=== PATIENT | female | born 1980 | race Two or more races ===

== ENCOUNTER → 2023-11-17 | Outpatient (CLI) | payer BC, OTHER ==
--- NOTE | 2023-11-17 13:14 | US ---
EXAMINATION TYPE: US pelvis complete transvag DATE OF EXAM: 11/17/2023 COMPARISON: NONE CLINICAL INDICATION: Female, 43 years old with history of R10.2 PELVIC AND PERINEAL PAIN; Patient sta wanda having a history of right cyst removal. TECHNIQUE: Transvaginal (TV) and Transabdominal (TA) . Transabdominal sonographic images of the pel vis were acquired. Transvaginal sonographic images were medically necessary to better assess the fol lowing anatomy: Ovaries, endometrium Date of LMP: 11/14/2023, EXAM MEASUREMENTS: Uterus: 7.4 x 4.3 x 4.3 cm Endometrial Stripe: 0.4 cm Right Ovary: 3.0 x 1.6 x 1.9 cm Left Ovary: 2.4 x 1.5 x 1.3 cm 1. Uterus: Retroverted Hypoechoic lesions seen, with right = 2.3 x 2.1 x 2.2 cm and left = 1.0 x 1.0 x 0.8 cm 2. Endometrium: wnl 3. Right Ovary: follicles seen 4. Left Ovary: Follice seen 5. Bilateral Adnexa: free fluid seen adjacent to left ovary extending into posterior cul de sac 6. Posterior cul-de-sac: free fluid IMPRESSION: 1. probable leiomyomatous change of the uterus.
== END | disposition home or self-care (01) ==
LOC: RADUSWWP 12:05
PROVIDERS: ATTEND Obstetrics & Gynecology
DX: R10.2 Pelvic and perineal pain (principal)
CPT/HCPCS: 76830; 76856

== ENCOUNTER 2024-03-22 18:33 | Emergency (ER) | payer BC, OTHER ==
--- NOTE | 2024-03-22 18:51 | ED ---
Nausea/Vomiting/Diarrhea HPI - General Source: patient, RN notes reviewed Mode of arrival: ambulatory Limitations: no limitations <Daya Hughes - Last Filed: 03/22/24 18:49> - History of Present Illness MD complaint: nausea, abdominal pain Onset/Timin -: days(s) Description of Vomiting: food contents Associated Abdominal Pain: Yes Location: diffuse Severity: moderate Quality: cramping Consistency: intermittent Improves with: none Worsens with: none Associated Symptoms: nausea/vomiting <Jacinto Price - Last Filed: 04/03/24 11:13> - General Chief complaint: Nausea/Vomiting/Diarrhea Stated complaint: Vomiting, Time Seen by Provider: 03/22/24 18:50 - History of Present Illness Initial comments: Quick note: 44-year-old female presenting to the ER with a chief complaint of myalgias and vomiting. She states has been going on since 03/20/24. She also is describing shortness of breath. Denies any cough, congestion, or chest pain. (Daya Hughes) - Related Data Previous Rx's Medication Instructions Recorded Famotidine [Pepcid] 20 mg PO BID #14 tablet 03/23/24 Ondansetron Odt [Zofran ODT] 4 mg PO Q8HR PRN #10 tab 03/23/24 Allergies Allergy/AdvReac Type Severity Reaction Status Date / Time No Known Allergies Allergy Verified 03/22/24 18:40 Review of Systems ROS Other: All systems not noted in ROS Statement are negative. <Daya Hughes - Last Filed: 03/22/24 18:49> ROS Other: All systems not noted in ROS Statement are negative. Constitutional: Denies: fever Respiratory: Denies: cough, dyspnea Cardiovascular: Denies: chest pain, palpitations, edema, syncope Gastrointestinal: Reports: abdominal pain, nausea, vomiting. Denies: hematemesis, melena, hematochezia Genitourinary: Denies: dysuria, hematuria Skin: Denies: rash Neurological: Denies: headache, numbness <Jacinto Price - Last Filed: 04/03/24 11:13> ROS Statement: Those systems with pertinent positive or pertinent negative responses have been documented in the HPI. Past Medical History Past Medical History: No Reported History Past Surgical History: Cholecystectomy Additional Past Surgical History / Comment(s): ovarian <Daya Hughes - Last Filed: 03/22/24 18:49> General Exam Limitations: no limitations <Daya Hughes - Last Filed: 03/22/24 18:49> Limitations: no limitations General appearance: alert, in no apparent distress Head exam: Present: atraumatic, normocephalic Eye exam: Present: normal appearance. Absent: scleral icterus, conjunctival injection Neck exam: Present: normal inspection Respiratory exam: Present: normal lung sounds bilaterally. Absent: respiratory distress, wheezes, rales, rhonchi, stridor, accessory muscle use Cardiovascular Exam: Present: regular rate, normal rhythm, normal heart sounds. Absent: systolic murmur, diastolic murmur, rubs, gallop GI/Abdominal exam: Present: soft, tenderness. Absent: distended, guarding, rebound, rigid, mass, pulsatile mass, hernia Extremities exam: Present: normal inspection, normal capillary refill. Absent: pedal edema, calf tenderness Back exam: Present: normal inspection. Absent: CVA tenderness (R), CVA tenderness (L) Neurological exam: Present: alert Skin exam: Present: warm, dry, intact, normal color. Absent: rash <Jacinto Price - Last Filed: 04/03/24 11:13> - General Exam Comments Initial Comments: Visual Physical Exam Vital signs reviewed General: Well-appearing, nontoxic, no acute distress. Head: Normocephalic, atraumatic Eyes: PERRLA, EOMI ENT: Airway patent Chest: Nonlabored breathing Skin: No visual rash, normal skin tone Neuro: Alert and oriented 3 Musculoskeletal: No gross abnormalities (Daya Hughes) Course Vital Signs 03/22/24 03/23/24 03/23/24 18:37 01:38 04:40 Temperature 98 F 97.8 F Pulse Rate 89 65 67 Respiratory 36 H 18 Rate Blood Pressure 127/91 109/52 118/65 O2 Sat by Pulse 99 100 100 Oximetry Medical Decision Making <Daya Hughes - Last Filed: 03/22/24 18:49> - Lab Data Result diagrams: 03/22/24 18:55 03/22/24 18:55 <Jacinto Price - Last Filed: 04/03/24 11:13> - Medical Decision Making I performed the quick note portion of this chart. Electronically signed by Daya Hughes PA-C (Daya Hughes) The patient had CT scan of the abdomen which I interpreted as negative for acute surgical condition, no free air, no obstruction Was pt. sent in by a medical professional or institution (BETTY Seth, SEPARATOR OPERATOR [employer], urgent care, hospital, or fpc...) When possible be specific @ -[No] Did you speak to anyone other than the patient for history (EMS, parent, family, police, friend...)? What history was obtained from this source @ -[No] Did you review nursing and triage notes (agree or disagree)? Why? @ -[I reviewed and agree with nursing and triage notes] Were old charts reviewed (outside hosp., previous admission, EMS record, old EKG, old radiological studies, urgent care reports/EKG's, fpc records)? Report findings @ -[No old charts were reviewed] Differential Diagnosis (chest pain, altered mental status, abdominal pain women, abdominal pain men, vaginal bleeding, weakness, fever, dyspnea, syncope, headache, dizziness, GI bleed, back pain, seizure, CVA, palpatations, mental health, musculoskeletal)? @ -[Differential Abdominal Pain Women: Appendicitis, Cholecystitis, diverticulosis, ischemic bowel, pancreatitis, hepatitis, UTI, gastroenteritis, AAA, incarcerated hernia, bowel obstruction, constipation, inflammatory bowel, hepatitis, peptic ulcer disease, splenic infarction, perforated viscus, vulvitis, ovarian torsion, PID, kidney stone, placenta abruption, this is not meant to be an all-inclusive list EKG interpreted by me (3pts min.). @ -[As above] X-rays interpreted by me (1pt min.). @ -[None done] CT interpreted by me (1pt min.). @ -[I interpreted as above U/S interpreted by me (1pt. min.). @ -[None done] What testing was considered but not performed or refused? (CT, X-rays, U/S, labs)? Why? @ -[None] What meds were considered but not given or refused? Why? @ -[None] Did you discuss the management of the patient with other professionals (professionals i.e. BETTY Seth, SEPARATOR [employer], lab, RT, psych nurse, healthcare social worker, carton stamper, teacher, articulation officer, nurse outreach case manager)? Give summary @ -[No] Was smoking cessation discussed for >3mins.? @ -[No] Was critical care preformed (if so, how long)? @ -[No] Were there social determinants of health that impacted care today? How? (Homelessness, low income, unemployed, alcoholism, drug addiction, transportation, low edu. Level, literacy, decrease access to med. care, skilled nursing, rehab)? @ -[No] Was there de-escalation of care discussed even if they declined (Discuss DNR or withdrawal of care, Hospice)? DNR status @ -[No] What co-morbidities impacted this encounter? (DM, HTN, Smoking, COPD, CAD, Cancer, CVA, ARF, Chemo, Hep., AIDS, mental health diagnosis, sleep apnea, morbid obesity)? @ -[None] Was patient admitted / discharged? Hospital course, mention meds given and route, prescriptions, significant lab abnormalities, going to OR and other pertinent info. @ -[Patient is 44-year-old woman here to have evaluation of abdominal pain. There is tenderness on the exam and patient therefore is sent for CT scan. The CT scan does not reveal definite etiology. I discussed with the patient appropriate further care and follow-up as well as return parameters. Undiagnosed new problem with uncertain prognosis? @ -[No] Drug Therapy requiring intensive monitoring for toxicity (Heparin, Nitro, Insulin, Cardizem)? @ -[No] Were any procedures done? @ -[No] Diagnosis/symptom? @ -[Acute abdominal pain Acute, or Chronic, or Acute on Chronic? @ -[Acute Uncomplicated (without systemic symptoms) or Complicated (systemic symptoms)? @ -[Uncomplicated Side effects of treatment? @ -[No] Exacerbation, Progression, or Severe Exacerbation? @ -[No] Poses a threat to life or bodily function? How? (Chest pain, USA, PR, pneumonia, PE, COPD, DKA, ARF, appy, cholecystitis, CVA, Diverticulitis, Homicidal, Suicidal, threat to staff... and all critical care pts) @ -[No] (Jacinto Price) - Lab Data Lab Results 03/22/24 03/22/24 03/22/24 Range/Units 18:55 18:55 18:55 WBC 7.2 (3.8-10.6) k/uL RBC 4.65 (3.80-5.40) m/uL Hgb 14.6 (11.4-16.0) gm/dL Hct 42.8 (34.0-46.0) % MCV 92.0 (80.0-100.0) fL MCH 31.4 (25.0-35.0) pg MCHC 34.1 (31.0-37.0) g/dL RDW 12.3 (11.5-15.5) % Plt Count 296 (150-450) k/uL MPV 7.4 Neutrophils % 67 % Lymphocytes % 25 % Monocytes % 5 % Eosinophils % 1 % Basophils % 0 % Neutrophils # 4.8 (1.3-7.7) k/uL Lymphocytes # 1.8 (1.0-4.8) k/uL Monocytes # 0.4 (0-1.0) k/uL Eosinophils # 0.1 (0-0.7) k/uL Basophils # 0.0 (0-0.2) k/uL Sodium 139 (137-145) mmol/L Potassium 4.3 (3.5-5.1) mmol/L Chloride 108 H (98-107) mmol/L Carbon Dioxide 20 L (22-30) mmol/L Anion Gap 11 mmol/L BUN 11 (7-17) mg/dL Creatinine 0.69 (0.52-1.04) mg/dL Est GFR (CKD-EPI)AfAm >90 (>60 ml/min/1.73 sqM) Est GFR (CKD-EPI)NonAf >90 (>60 ml/min/1.73 sqM) Glucose 102 H (74-99) mg/dL Plasma Lactic Acid Iftikhar 1.9 (0.7-2.0) mmol/L Calcium 9.6 (8.4-10.2) mg/dL Total Bilirubin 0.5 (0.2-1.3) mg/dL AST 32 (14-36) U/L ALT 34 (4-34) U/L Alkaline Phosphatase 80 (38-126) U/L Troponin I (0.000-0.034) ng/mL Total Protein 7.1 (6.3-8.2) g/dL Albumin 4.2 (3.5-5.0) g/dL Amylase 61 (30-110) U/L Lipase 82 (23-300) U/L Urine Color Urine Appearance (Clear) Urine pH (5.0-8.0) Ur Specific [place] (1.001-1.035) Urine Protein (Negative) Urine Glucose (UA) (Negative) Urine Ketones (Negative) Urine Blood (Negative) Urine Nitrite (Negative) Urine Bilirubin (Negative) Urine Urobilinogen (<2.0) mg/dL Ur Leukocyte Esterase (Negative) Urine RBC (0-5) /hpf Urine WBC (0-5) /hpf Ur Squamous Epith Cells (0-4) /hpf Urine Bacteria (None) /hpf Urine Mucus (None) /hpf Urine HCG, Qual (Not Detectd) Influenza Type A (PCR) (Not Detectd) Influenza Type B (PCR) (Not Detectd) RSV (PCR) (Not Detectd) SARS-CoV-2 (PCR) (Not Detectd) 03/22/24 03/22/24 03/22/24 Range/Units 18:55 18:55 23:10 WBC (3.8-10.6) k/uL RBC (3.80-5.40) m/uL Hgb (11.4-16.0) gm/dL Hct (34.0-46.0) % MCV (80.0-100.0) fL MCH (25.0-35.0) pg MCHC (31.0-37.0) g/dL RDW (11.5-15.5) % Plt Count (150-450) k/uL MPV Neutrophils % % Lymphocytes % % Monocytes % % Eosinophils % % Basophils % % Neutrophils # (1.3-7.7) k/uL Lymphocytes # (1.0-4.8) k/uL Monocytes # (0-1.0) k/uL Eosinophils # (0-0.7) k/uL Basophils # (0-0.2) k/uL Sodium (137-145) mmol/L Potassium (3.5-5.1) mmol/L Chloride (98-107) mmol/L Carbon Dioxide (22-30) mmol/L Anion Gap mmol/L BUN (7-17) mg/dL Creatinine (0.52-1.04) mg/dL Est GFR (CKD-EPI)AfAm (>60 ml/min/1.73 sqM) Est GFR (CKD-EPI)NonAf (>60 ml/min/1.73 sqM) Glucose (74-99) mg/dL Plasma Lactic Acid Iftikhar (0.7-2.0) mmol/L Calcium (8.4-10.2) mg/dL Total Bilirubin (0.2-1.3) mg/dL AST (14-36) U/L ALT (4-34) U/L Alkaline Phosphatase (38-126) U/L Troponin I <0.012 (0.000-0.034) ng/mL Total Protein (6.3-8.2) g/dL Albumin (3.5-5.0) g/dL Amylase (30-110) U/L Lipase (23-300) U/L Urine Color Yellow Urine Appearance Cloudy H (Clear) Urine pH 6.5 (5.0-8.0) Ur Specific [place] 1.026 (1.001-1.035) Urine Protein Trace H (Negative) Urine Glucose (UA) Negative (Negative) Urine Ketones 1+ H (Negative) Urine Blood Negative (Negative) Urine Nitrite Negative (Negative) Urine Bilirubin Negative (Negative) Urine Urobilinogen 2.0 (<2.0) mg/dL Ur Leukocyte Esterase Large H (Negative) Urine RBC 1 (0-5) /hpf Urine WBC 6 H (0-5) /hpf Ur Squamous Epith Cells 7 H (0-4) /hpf Urine Bacteria Rare H (None) /hpf Urine Mucus Many H (None) /hpf Urine HCG, Qual (Not Detectd) Influenza Type A (PCR) Not Detected (Not Detectd) Influenza Type B (PCR) Not Detected (Not Detectd) RSV (PCR) Not Detected (Not Detectd) SARS-CoV-2 (PCR) Not Detected (Not Detectd) 03/22/24 Range/Units 23:10 WBC (3.8-10.6) k/uL RBC (3.80-5.40) m/uL Hgb (11.4-16.0) gm/dL Hct (34.0-46.0) % MCV (80.0-100.0) fL MCH (25.0-35.0) pg MCHC (31.0-37.0) g/dL RDW (11.5-15.5) % Plt Count (150-450) k/uL MPV Neutrophils % % Lymphocytes % % Monocytes % % Eosinophils % % Basophils % % Neutrophils # (1.3-7.7) k/uL Lymphocytes # (1.0-4.8) k/uL Monocytes # (0-1.0) k/uL Eosinophils # (0-0.7) k/uL Basophils # (0-0.2) k/uL Sodium (137-145) mmol/L Potassium (3.5-5.1) mmol/L Chloride (98-107) mmol/L Carbon Dioxide (22-30) mmol/L Anion Gap mmol/L BUN (7-17) mg/dL Creatinine (0.52-1.04) mg/dL Est GFR (CKD-EPI)AfAm (>60 ml/min/1.73 sqM) Est GFR (CKD-EPI)NonAf (>60 ml/min/1.73 sqM) Glucose (74-99) mg/dL Plasma Lactic Acid Iftikhar (0.7-2.0) mmol/L Calcium (8.4-10.2) mg/dL Total Bilirubin (0.2-1.3) mg/dL AST (14-36) U/L ALT (4-34) U/L Alkaline Phosphatase (38-126) U/L Troponin I (0.000-0.034) ng/mL Total Protein (6.3-8.2) g/dL Albumin (3.5-5.0) g/dL Amylase (30-110) U/L Lipase (23-300) U/L Urine Color Urine Appearance (Clear) Urine pH (5.0-8.0) Ur Specific [place] (1.001-1.035) Urine Protein (Negative) Urine Glucose (UA) (Negative) Urine Ketones (Negative) Urine Blood (Negative) Urine Nitrite (Negative) Urine Bilirubin (Negative) Urine Urobilinogen (<2.0) mg/dL Ur Leukocyte Esterase (Negative) Urine RBC (0-5) /hpf Urine WBC (0-5) /hpf Ur Squamous Epith Cells (0-4) /hpf Urine Bacteria (None) /hpf Urine Mucus (None) /hpf Urine HCG, Qual Not Detected (Not Detectd) Influenza Type A (PCR) (Not Detectd) Influenza Type B (PCR) (Not Detectd) RSV (PCR) (Not Detectd) SARS-CoV-2 (PCR) (Not Detectd) Disposition <Daya Hughes - Last Filed: 03/22/24 18:49> Is patient prescribed a controlled substance at d/c from ED?: No <Jacinto Price - Last Filed: 04/03/24 11:13> Clinical Impression: Abdominal pain Disposition: HOME SELF-CARE Condition: Good Instructions (If sedation given, give patient instructions): Abdominal Pain (ED) Prescriptions: Famotidine [Pepcid] 20 mg PO BID #14 tablet Ondansetron Odt [Zofran ODT] 4 mg PO Q8HR PRN #10 tab PRN Reason: Nausea Referrals: None,Stated [REFERRING] - 1-2 days
[2024-03-22 19:12] LABS: Basophils % (A) 0 %; Eosinophils # (A) 0.1 k/uL (0-0.7); Eosinophils % (A) 1 %; HCT 42.8 % (34.0-46.0); HGB 14.6 gm/dL (11.4-16.0); Lymphocytes # (A) 1.8 k/uL (1.0-4.8); Lymphocytes % (A) 25 %; MCH 31.4 pg (25.0-35.0); MCHC 34.1 g/dL (31.0-37.0); Mean Platelet Volume 7.4; Monocytes # (A) 0.4 k/uL (0-1.0); Monocytes % (A) 5 %; Neutrophils # (A) 4.8 k/uL (1.3-7.7); Neutrophils % (A) 67 %; Platelet Count 296 k/uL (150-450); RBC 4.65 m/uL (3.80-5.40); RDW 12.3 % (11.5-15.5); WBC 7.2 k/uL (3.8-10.6)
[2024-03-22 19:29] LABS: ALT 34 U/L (4-34); AST 32 U/L (14-36); African American GFR (CKD) >90 (>60 ml/min/1.73 sqM); Albumin 4.2 g/dL (3.5-5.0); Alkaline Phosphatase 80 U/L (38-126); Amylase 61 U/L (30-110); Anion Gap 11 mmol/L; Blood Urea Nitrogen 11 mg/dL (7-17); Calcium 9.6 mg/dL (8.4-10.2); Carbon Dioxide 20 mmol/L (22-30); Chloride 108 mmol/L (98-107); Glucose 102 mg/dL (74-99); Lipase 82 U/L (23-300); Non-African American GFR(CKD) >90 (>60 ml/min/1.73 sqM); Potassium 4.3 mmol/L (3.5-5.1); Sodium 139 mmol/L (137-145); Total Bilirubin 0.5 mg/dL (0.2-1.3); Total Protein 7.1 g/dL (6.3-8.2)
[2024-03-22 23:31] LABS: Appearance,Urine Cloudy (Clear); Bacteria,Urine Rare /hpf; Bilirubin,Urine Negative (Negative); Blood,Urine Negative (Negative); Color,Urine Yellow; Glucose,Urine (UA) Negative (Negative); Ketones,Urine 1+ (Negative); Leukocyte Esterase,Urine Large (Negative); Mucus,Urine Many /hpf; Nitrite,Urine Negative (Negative); PH, Urine 6.5 (5.0-8.0); Protein,Urine Trace (Negative); RBC,Urine 1 /hpf (0-5); Specific Gravity,Urine 1.026 (1.001-1.035); Squamous Epithelial Cell,Urine 7 /hpf (0-4); WBC,Urine 6 /hpf (0-5)
[2024-03-22] MEDS: ONDANSETRON 4 MG/2 ML VIAL IVP STA (23:49)
[2024-03-22] MEDS: SODIUM CHLORIDE 0.9% 1,000 ML IV ONE (23:49)
[2024-03-23 01:49] VITALS: RESP 18
[2024-03-23] MEDS: IBUPROFEN 600 MG TAB PO STA (02:34)
--- NOTE | 2024-03-23 04:03 | CT ---
EXAM: CT Abdomen and Pelvis With Intravenous Contrast CLINICAL HISTORY: ITS.REASON CT Reason: RLQ pain TECHNIQUE: Axial computed tomography images of the abdomen and pelvis with intravenous contrast. CTDI is 21.9 mGy and DLP is 1039.4 mGy-cm. This CT exam was performed using one or more of the following dose reduction techniques: automated exposure control, adjustment of the mA and/or kV according to patient size, and/or use of iterative reconstruction technique. Coronal and sagittal reformatted images were created and reviewed. 451 images COMPARISON: No relevant prior studies available. FINDINGS: Lung bases: Unremarkable. No mass. No consolidation. ABDOMEN: Liver: Mildly enlarged fatty liver. Gallbladder and bile ducts: Cholecystectomy clips. No ductal dilation. Pancreas: Unremarkable. No mass. No ductal dilation. Spleen: Unremarkable. No splenomegaly. Adrenals: Unremarkable. No mass. Kidneys and ureters: Unremarkable. No solid mass. No hydronephrosis. Stomach and bowel: Unremarkable. No obstruction. No mucosal thickening. PELVIS: Appendix: Normal appendix. Bladder: Unremarkable. No mass. Reproductive: Likely right adnexa rather than a fibroid in the right fundal region of the uterus. ABDOMEN and PELVIS: Intraperitoneal space: Unremarkable. No free air. No significant fluid collection. Bones/joints: No acute findings. Soft tissues: Unremarkable. Vasculature: Unremarkable. No abdominal aortic aneurysm. Lymph nodes: Unremarkable. No enlarged lymph nodes. IMPRESSION: No inflammatory change
[2024-03-23] MEDS: SODIUM CHLORIDE 0.9% 500 ML 500 ML IV STA (04:34)
[2024-03-23] MEDS: METOCLOPRAMIDE 5 MG/ML 2 ML VIAL IVP STA (04:35)
[2024-03-23] MEDS: diphenhydrAMINE 50 MG/ML 1 ML VIAL IVP STA (04:35)
[2024-03-23 05:04] VITALS: BP 118/65; PULSE 67; TEMP 97.8
== END 2024-03-23 05:13 | disposition home or self-care (01) ==
LOC: EC 18:33
DX: R10.9 Unspecified abdominal pain (principal)
CPT/HCPCS: 36415; 80053; 82150; 83605; 83690; 84484; 85025; 81001; 81025; 87636; 74177; 99284; 96374; 96375 ×2; 96361; J1200; J2765; J2405; Q9967; 93005

== ENCOUNTER → 2024-08-29 | Outpatient (CLI) | payer BC ==
--- NOTE | 2024-08-30 12:23 | MM ---
Reason for Exam: Screening (asymptomatic). Patient History: Menarche at age 14. First Full-Term at age 33. Late child-bearing (after 30). 2018, US biopsy breast VAD LT - 2 on the Left side. Last menstrual period: 07/28/2024 Risk Values: Sabi 5 year model risk: 1.4%. NCI Lifetime model risk: 16.1%. Tissue Density: The breasts are heterogeneously dense, which may obscure small masses. Findings: Analyzed By CAD. Asymmetries bilaterally, right breast CC view posterior lateral aspect, left breast CC view middle depth medially. On left MLO view upper aspect on the left at middle depth.Left breast biopsy clip. Asymmetries bilaterally, right breast CC view posterior lateral aspect, left breast CC view middle depth medially. On left MLO view upper aspect on the left at middle depth. Overall Assessment: Incomplete: need additional imaging evaluation, BI-RAD 0 Management: Diagnostic Mammogram of both breasts. [facility] will attempt to contact patient to return for supplemental views and ultrasound if indicated. Patient should continue monthly self-breast exams. A clinical breast exam by your physician is recommended on an annual basis. This exam should not preclude additional follow-up of suspicious palpable abnormalities. Note on Sabi scores and lifetime risk: 1. A Sabi score greater than 3% is considered moderate risk. If this is the case, consider specialist referral to assess eligibility for a risk reducing agent. 2. If overall lifetime risk for the development of breast cancer is 20% or higher, the patient may qualify for future screening with alternating mammogram and breast MRI. [facility], , 08/30/2024 12:20 PM. Electronically signed and approved by: Eduardo Mckeon DO
== END | disposition home or self-care (01) ==
LOC: RADMAMWWP 10:45
PROVIDERS: ATTEND Family Medicine
CPT/HCPCS: 77063; 77067

== ENCOUNTER → 2024-08-29 | Outpatient (CLI) | payer BC ==
[2024-08-29 13:32] VITALS: BP 115/79; PULSE 95; RESP 16; TEMP 98.5
--- NOTE | 2024-08-29 14:19 | P.SLEEP ---
History of Present Illness H&P Date: 08/29/24 44-year-old female patient, presenting to the sleep center due to concerns of sleep apnea. The patient used to live in [place] and she has been evaluated in the past and she has been told to have sleep apnea. Nevertheless, the extent of the disease and the severity is not known. The patient accordingly is coming in for further evaluation. She snores. She stops breathing throughout the night and the patient sleep is quite fragmented. She goes to bed at around 10 PM and she wakes up 6:55 AM in the morning. She is excessively tired and sleepy during the day. 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 No recent weight gain or weight loss. Occasionally she wakes up from middle of the night choking and gasping for air. Her current Edmond score is at 8. No angina. No palpitations. No history of any congestive heart failure. She has chronic anxiety and depression and the patient has grinding of the teeth. No reported insomnia. No heartburn. No palpitations. No sleepwalking or sleep talking. Her has obstructive sleep apnea and wears a CPAP machine. The patient has no history of substance abuse. She drinks 20 ounce Mountain Dew on a daily basis. No excessive utilization of coffee or alcoholic beverages. She does have restlessness in lower extremities and the patient has been maintained on Requip. Rest of the medications are related to her chronic anxiety and depression. The patient is coming in for further investigation. The patient sleeps in various body positions. She is a mouth breather. Review of Systems Constitutional: Reports daytime sleepiness, Reports fatigue, Reports weight gain Eyes: denies as per HPI, denies blurred vision, denies bulging eye, denies decreased vision, denies diplopia, denies discharge, denies dry eye, denies irr itation, denies itching, denies pain, denies photophobia, denies loss of peripheral vision, denies loss of vision, denies tunnel vision/blind spots Ears: deny: decreased hearing, ear discharge, earache, tinnitus Ears, nose, mouth and throat: Reports as per HPI Breasts: absent: as per HPI, change in shape, gynecomastia, masses, nipple discharge, pain, skin changes, swelling Cardiovascular: Reports as per HPI Respiratory: Reports snoring Gastrointestinal: Reports as per HPI Genitourinary: Reports as per HPI Menstruation: Reports as per HPI Musculoskeletal: Reports as per HPI Musculoskeletal: absent: ankle pain, ankle stiffness, ankle swelling, as per HPI, elbow pain, elbow stiffness, elbow swelling, foot pain, foot stiffness, foot swelling, hand pain, hand stiffness, hand swelling, hip pain, hip stiffness, hip swelling, knee pain, knee stiffness, knee swelling, shoulder pain, shoulder stiffness, shoulder swelling, wrist pain, wrist stiffness, wrist swelling Integumentary: Reports as per HPI Neurological: Reports as per HPI Psychiatric: Reports anxiety, Reports depression, Reports hypersomnia, Reports sleep disturbances Endocrine: Reports as per HPI, Reports fatigue Hematologic/Lymphatic: Reports as per HPI Allergic/Immunologic: Reports as per HPI Past Medical History Past Medical History: Hyperlipidemia Additional Past Medical History / Comment(s): Sinus headaches, snoring, headaches, restless legs. Depression and anxiety. On medication for weight loss currently. History of Any Multi-Drug Resistant Organisms: None Reported Past Surgical History: Cholecystectomy Additional Past Surgical History / Comment(s): ovarian cyst removed and D&C Past Psychological History: Anxiety, Depression Smoking Status: Never smoker Past Alcohol Use History: Rare Past Drug Use History: None Reported - Past Family History Mother Family Medical History: Hypertension Additional Family Medical History / Comment(s): Pre diabetec, Father Additional Family Medical History / Comment(s): Pancreatitis (alcholol related) Medications and Allergies Home Medications and Allergies Comment(s): Vraylar 1.5 mg p.o. daily, venlafaxine 150 mg p.o. daily, pravastatin 10 mg p.o. daily, Oddyi 100 mg p.o. daily, Requip 2 mg p.o. at bedtime, propranolol 10 mg p.o. in the morning and Wegovy injections 5 mg every week. Home Medications Medication Instructions Recorded Confirmed Type Famotidine [Pepcid] 20 mg PO BID #14 tablet 03/23/24 Rx RX: Ondansetron Odt [Zofran ODT] 4 mg PO Q8HR PRN #10 tab 03/23/24 Rx Allergies Allergy/AdvReac Type Severity Reaction Status Date / Time No Known Allergies Allergy Verified 03/22/24 18:40 Physical Exam Vitals: Vital Signs Temp Pulse Resp BP Pulse Ox 08/29/24 13:31 98.5 F 95 16 115/79 98 Intake and Output 08/28/24 08/29/24 08/29/24 22:59 06:59 14:59 Other: Weight 74.956 kg The patient appeared well nourished and normally developed. Vital signs as documented. Head exam is unremarkable. No scleral icterus or corneal arcus noted. Neck is without jugular venous distension, thyromegaly, or carotid bruits. Carotid upstrokes are brisk bilaterally. The patient has a Mallampati class IV with crowding of the posterior pharynx Lungs are clear to auscultation and percussion. Cardiac exam reveals the PMI to be normally sized and situated. Rhythm is regular. First and second heart sounds normal. No murmurs, rubs or gallops. Abdominal exam reveals normal bowel sounds, no masses, no organomegaly and no aortic enlargement. Extremities are nonedematous and both femoral and pedal pulses are normal. Examination of the skin revealed no evidence of significant rashes, suspicious appearing nevi or other concerning lesions. Neurologically, the patient is awake and alert and the patient does not have any focal neurological deficit. Cranial nerves are essentially intact. Assessment and Plan Plan: Chronic hypersomnia and sleepiness along with sleep fragmentation/snoring. Rule out underlying obstructive sleep apnea. The patient has an Edmond score of 8. The patient will need further investigation. In fact, she has undergone testing approximately 4 years ago in [place] and she has been told to have obstructive sleep apnea. Nevertheless, no follow-up was done on her original testing results Chronic fatigue, likely secondary to above and other comorbidities Chronic anxiety Chronic depression Restless leg syndrome maintained on Requip Hyperlipidemia Plan Optimize sleep hygiene measures. Maintain regular sleep schedule Proceed with screening polysomnography to rule out obstructive sleep apnea and decide on treatment options accordingly. Encourage weight loss as the patient is currently taking Wegovy Continue rest of the psychiatric medications Will continue to follow make further recommendations based on the results of sl eep study. Sleep Note - Sleep Data ESS Total: 8 - Sleep Note Sleep Note: Temperature: 98.5 F Pulse Rate: 95 Respiratory Rate: 16 Blood Pressure: 115/79 SpO2: 98 Height: 5 ft 1 in Weight: 74.956 kg BMI: Neck Circumference: 14.5
== END ==
LOC: 3 N SLEEP 13:08
PROVIDERS: ATTEND Internal Medicine Critical Care Medicine
CPT/HCPCS: 99211

== ENCOUNTER → 2024-09-01 | Outpatient (CLI) | payer BC ==
--- NOTE | 2024-09-01 08:12 | MM ---
Reason for Exam: Additional evaluation requested from abnormal screening. Last screening mammogram was performed less than 1 month ago. Patient History: Menarche at age 14. First Full-Term at age 33. Late child-bearing (after 30). 2018, US biopsy breast VAD LT - 2 on the Left side. Risk Values: Sabi 5 year model risk: 1.4%. NCI Lifetime model risk: 16.1%. Prior Study Comparison: 08/29/2024 Bilateral MG 3D screening mammo w/cad, [facility]. Tissue Density: The breasts are heterogeneously dense, which may obscure small masses. Findings: Analyzed By CAD. No discrete abnormality right breast additional views obtained. Left breast demonstrates nodular density upper inner quadrant 8 cm from the nipple measuring approximately 1 cm. Ultrasound is recommended. Overall Assessment: Incomplete: need additional imaging evaluation, BI-RAD 0 Management: Diagnostic Breast Ultrasound of the left breast. . Results were given to the patient verbally at the time of exam. Patient should continue monthly self-breast exams. A clinical breast exam by your physician is recommended on an annual basis. This exam should not preclude additional follow-up of suspicious palpable abnormalities. Note on Sabi scores and lifetime risk: 1. A Sabi score greater than 3% is considered moderate risk. If this is the case, consider specialist referral to assess eligibility for a risk reducing agent. 2. If overall lifetime risk for the development of breast cancer is 20% or higher, the patient may qualify for future screening with alternating mammogram and breast MRI. [facility], , 09/01/2024 8:09 AM. Electronically signed and approved by: Enmanuel Quintanilla M.D. Radiologis
--- NOTE | 2024-09-01 08:46 | USB ---
Reason for Exam: Additional evaluation requested from abnormal screening. Patient History: Menarche at age 14. First Full-Term at age 33. Late child-bearing (after 30). 2018, US biopsy breast VAD LT - 2 on the Left side. Risk Values: Sabi 5 year model risk: 1.4%. NCI Lifetime model risk: 16.1%. Technique: Method: Targeted. Doppler: Color. Patient Position: RPO. Prior Study Comparison: 08/29/2024 Bilateral MG 3D screening mammo w/cad, [facility]. Findings: The upper inner quadrant of the left breast, the axilla of the left breast and the retroareolar of the left breast were scanned. Previously sampled fibroadenomas noted at the left 6:00 position. The site of concern at the approximate 11 12:00 position left breast is felt to reflect fibroglandular tissue. Precautionary six-month follow-up left-sided mammography is advised. Overall Assessment: Probably benign, BI-RAD 3 Management: Diagnostic Mammogram of the left breast in 6 months. A clinical breast exam by your physician is recommended on an annual basis and results should be correlated with mammographic findings. This exam should not preclude additional follow-up of suspicious palpable abnormalities. Results were given to the patient verbally at the time of exam. [facility], , 09/01/2024 8:43 AM. Electronically signed and approved by: Enmanuel Quintanilla M.D. Radiologis
== END | disposition home or self-care (01) ==
LOC: RADMAMWWP 07:39
PROVIDERS: ATTEND Family Medicine
DX: R92.8 Other abnormal and inconclusive findings on diagnostic imaging of breast
CPT/HCPCS: 77062; 77066

== ENCOUNTER → 2024-09-19 | Outpatient (CLI) | payer BC ==
--- NOTE | 2024-09-28 20:53 | P.PCN ---
Date of Procedure: 09/19/24 Operative Findings: Home sleep study testing Date of service is 09/19/2024 Pertinent history 44-year-old female patient, presenting to the sleep center due to concerns of sleep apnea. The patient used to live in [place] and she has been evaluated in the past and she has been told to have sleep apnea. Nevertheless, the extent of the disease and the severity is not known. The patient accordingly is coming in for further evaluation. She snores. She stops breathing throughout the night and the patient sleep is quite fragmented. She goes to bed at around 10 PM and she wakes up 6:55 AM in the morning. She is excessively tired and sleepy during the day. 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 No recent weight gain or weight loss. Occasionally she wakes up from middle of the night choking and gasping for air. Her current Bridgeport score is at 8. No angina. No palpitations. No history of any congestive heart failure. She has chronic anxiety and depression and the patient has grinding of the teeth. No reported insomnia. No heartburn. No palpitations. No sleepwalking or sleep talking. Her has obstructive sleep apnea and wears a CPAP machine. The patient has no history of substance abuse. She drinks 20 ounce Mountain Dew on a daily basis. No excessive utilization of coffee or alcoholic beverages. She does have restlessness in lower extremities and the patient has been maintained on Requip. Rest of the medications are rel ated to her chronic anxiety and depression. The patient is coming in for further investigation. The patient sleeps in various body positions. She is a mouth breather. Pertinent physical findings The patient has a body mass index of 31.1 Technical description The I[employer] system was used to complete his home sleep study. The patient had a type III home sleep study evaluation. The total recording duration was 8 hours and 26 minutes. The study started at 9:55 PM and attended 6 hours and 32 AM. There was a total of 8 hours and 24 minutes of flow monitoring and a total of 8 hours and 26 minutes of oxygen saturation monitoring. Results The respiratory analysis showed a total of 19 obstructive apneas and 61 obstructive hypopneas. The resulting AHI was 9.5, consistent with mild obstructive sleep apnea oxygenation analysis The baseline pulse ox while awake was 95%. Average pulse ox during sleep was 95% and the patient's lowest pulse ox was 85%. The patient spent approximately 3 minutes of sleep time below pulse ox of 89%. Cardiac summary Average heart rate was 79 with a minimum heart rate of 64 and a maximum heart rate of 103 Assessment Obstructive sleep apnea, mild in severity with an AHI of 9.5, without any significant nocturnal oxygen saturation. Chronic hypersomnia and sleepiness along with sleep fragmentation/snoring. This could be related to underlying obstructive sleep apnea. The patient has an Bridgeport score of 8. Chronic fatigue, likely secondary to above and other comorbidities Chronic anxiety Chronic depression Restless leg syndrome maintained on Requip Hyperlipidemia Plan Will asked the patient to come into the sleep center to undergo a CPAP titration regarding her obstructive sleep apnea. The patient's disease severity is mild, and I do doubt the possibility of obstructive sleep apnea being the sole contributing factor for chronic fatigue and sleepiness. Based on that, an in- lab CPAP titration is to be done to be followed up by CPAP therapy and assessment of her clinical response. Optimize sleep hygiene measures. Maintain regular sleep schedule Encourage weight loss as the patient is currently taking Wegovy Continue rest of the psychiatric medications Will continue to follow
== END ==
LOC: 3 N SLEEP 16:21
PROVIDERS: ATTEND Internal Medicine Critical Care Medicine
DX: G47.33 Obstructive sleep apnea (adult) (pediatric) (principal); G47.10 Hypersomnia, unspecified; R53.82 Chronic fatigue, unspecified; F41.9 Anxiety disorder, unspecified; F32.A Depression, unspecified; E78.5 Hyperlipidemia, unspecified; G25.81 Restless legs syndrome; G47.36 Sleep related hypoventilation in conditions classified elsewhere

== ENCOUNTER → 2024-11-09 | Outpatient (CLI) | payer BC ==
--- NOTE | 2024-11-09 10:29 | CT ---
EXAMINATION TYPE: CT abdomen pelvis wo con DATE OF EXAM: 11/09/2024 COMPARISON: 03/23/2024 CLINICAL INDICATION: Female, 44 years old with history of R10.9 ABD PAIN; PH[facility], ABD PAIN TECHNIQUE: CT scan of the abdomen and pelvis is performed without oral or IV contrast. CT DLP: 388.1 mGycm Automated exposure control for dose reduction was used. FINDINGS: Within the limitations of a non-contrast study, the following observations are made. LUNG BASES: Linear basilar scarring or atelectasis. Heart size stable and there is a small pericardia l effusion.. LIVER/GB: Hypoattenuation of the liver suggest underlying fatty infiltration or hepatocellular diseas e. Postcholecystectomy changes seen. Liver borderline in size measuring 16.8 cm. PANCREAS: No significant abnormality is seen. SPLEEN: Small accessory spleen. ADRENALS: No significant abnormality is seen. KIDNEYS: No hydronephrosis. There is a left lower pole punctate 1 to 2 mm nonobstructing calculus.. B ladder decompressed and limited. BOWEL: Appendix normal. Moderate retained stool burden correlate for constipation. No evidence of obs truction. GENITAL ORGANS: Intrauterine device is seen and there is fullness involving the lower uterine segment incompletely evaluated by noncontrast technique. Small amount of fluid not excluded. Recommend corre lation with pelvic ultrasound. LYMPH NODES: No greater than 1cm abdominal or pelvic lymph nodes are appreciated. OSSEOUS STRUCTURES: Bilateral hypertrophic hip arthropathy. No significant degenerative changes of th e spine. OTHER: Aorta of normal caliber. Soft tissue calcification and linear density in the right gluteal sub cutaneous tissues likely related to chronic scarring or granuloma. Tiny fat-containing periumbilical hernia. No inflammatory changes. IMPRESSION: 1. Nonobstructing punctate left lower pole 1 to 2 mm renal calculus.. 2. Prominence of the lower uterine segment or possibly left ovary with a small amount of free fluid s uspected or ovarian cyst. Recommend correlation with pelvic ultrasound. 3. Diverticulosis with no CT evidence of diverticulitis. 4. Postcholecystectomy. 5. Borderline hepatomegaly with findings suggestive of hepatic steatosis or underlying hepatocellular disease. [facility], , 11/09/2024 10:27 AM
[2024-11-09 15:28] LABS: BUN/Creat Ratio 11.62 Ratio (12.00-20.00); Blood Urea Nitrogen 9.3 mg/dL (9.0-27.0); Carbon Dioxide 25.5 mmol/L (21.6-31.8); Chloride 105 mmol/L (96-109); Glucose 88 mg/dL (70-110); Potassium 5.1 mmol/L (3.5-5.5); Sodium 139 mmol/L (135-145)
[2024-11-09 15:29] LABS: ALT 15 U/L (8-44); AST 18 U/L (13-35); Albumin 4.3 g/dL (3.8-4.9); Albumin/Globulin Ratio 1.95 Ratio (1.60-3.17); Alkaline Phosphatase 66 U/L (41-126); Calcium 9.3 mg/dL (8.7-10.3); Globulin 2.2 g/dL (1.6-3.3); Total Bilirubin 0.3 mg/dL (0.3-1.2); Total Protein 6.5 g/dL (6.2-8.2)
[2024-11-09 17:01] LABS: Basophils # (A) 0.04 X 10*3/uL (0.00-0.10); Basophils % (A) 0.7 %; Eosinophils % (A) 1.7 %; HCT 42.5 % (37.2-46.3); HGB 13.8 g/dL (12.0-15.0); Lymphocytes # (A) 1.33 X 10*3/uL (0.90-5.00); Lymphocytes % (A) 23.3 %; MCH 31.4 pg (27.0-32.0); MCHC 32.5 g/dL (32.0-37.0); MCV 96.6 FL (80.0-97.0); Mean Platelet Volume 10.7 FL (9.5-12.2); Monocytes # (A) 0.43 X 10*3/uL (0.20-1.00); Monocytes % (A) 7.5 %; NRBC Per 100 WBC 0 X 10*3/uL (0.00-0.01); Neutrophils % (A) 66.5 %; Platelet Count 299 X 10*3/uL (140-440); RDW 11.8 % (11.5-14.5); WBC 5.72 X 10*3/uL (4.50-10.00)
== END | disposition home or self-care (01) ==
LOC: RADCTMAIN 09:44
PROVIDERS: ATTEND Family Medicine
DX: N20.0 Calculus of kidney (principal); R16.0 Hepatomegaly, not elsewhere classified; K57.90 Diverticulosis of intestine, part unspecified, without perforation or abscess without bleeding; Z90.49 Acquired absence of other specified parts of digestive tract
CPT/HCPCS: 74176; 80053; 85025

== ENCOUNTER → 2025-05-09 | Outpatient (CLI) | payer BC ==
--- NOTE | 2025-05-09 11:55 | MM ---
Reason for Exam: Follow-up at short interval from prior study. Last screening mammogram was performed 8 month(s) ago. Patient History: Menarche at age 14. First Full-Term at age 33. Late child-bearing (after 30). Premenopausal. 2018, US biopsy breast VAD LT - 2 on the Left side. Last menstrual period: 05/07/2025 Risk Values: Sabi 5 year model risk: 1.1%. NCI Lifetime model risk: 11.4%. Prior Study Comparison: 08/29/2024 Bilateral MG 3D screening mammo w/cad, [facility]. 09/01/2024 Bilateral MG 3D work up w/cad [facility], [facility]. Tissue Density: Left: The breasts are heterogeneously dense, which may obscure small masses. Findings: Analyzed By CAD. Biopsy clips anteriorly in the left breast is redemonstrated. This is adjacent to stable 9 mm well circumscribed mass. No suspicious new mass or worrisome cluster of microcalcification in the left breast. Overall Assessment: Benign, BI-RAD 2 Management: Screening Mammogram of both breasts in 4 months. Return to routine follow-up. Results were given to the patient verbally at the time of exam. Patient should continue monthly self-breast exams. A clinical breast exam by your physician is recommended on an annual basis. This exam should not preclude additional follow-up of suspicious palpable abnormalities. Note on Sabi scores and lifetime risk: 1. A Sabi score greater than 3% is considered moderate risk. If this is the case, consider specialist referral to assess eligibility for a risk reducing agent. 2. If overall lifetime risk for the development of breast cancer is 20% or higher, the patient may qualify for future screening with alternating mammogram and breast MRI. [facility], , 05/09/2025 11:52 AM. Electronically signed and approved by: Jose Luis Dc M.D.
== END | disposition home or self-care (01) ==
LOC: RADMAMWWP 11:08
PROVIDERS: ATTEND Family Medicine
DX: R92.8 Other abnormal and inconclusive findings on diagnostic imaging of breast (principal); R92.332 Mammographic heterogeneous density, left breast
CPT/HCPCS: 77061; 77065